=== PATIENT | male | born 1965 | race Caucasian/White ===

== ENCOUNTER 2020-10-08 16:42 | Inpatient (IN) | payer OTHER ==
[~2020-10-08] VITALS: Ht 170.2 cm; Wt 100.7 kg
[2020-10-08] MEDS ORDERED: NICARDIPINE 40MG/200ML PREMIX 200 ML IV PRN (17:15)
[2020-10-08] MEDS ORDERED: IOHEXOL-350 100 ML BOTTLE ONE (17:43)
[2020-10-08] MEDS ORDERED: ALTEPLASE 100MG/VIAL IV NR (18:00)
[2020-10-08] MEDS ORDERED: *NO ASPIRIN X 24 HOURS XX SCH (18:00)
[2020-10-08] MEDS ORDERED: ALTEPLASE 81 MG in BAG 1 EACH IV ONE (18:05)
[2020-10-08 18:11] LABS: BASOPHILS % 0.8 % (0.0-2.0); EOSINOPHILS % 1.9 % (0.0-5.0); HEMATOCRIT. 38.6 % (42.0-52.0); HEMOGLOBIN. 13.4 g/dL (14.0-18.0); LYMPHOCYTES % 14.4 % (20.0-50.0); MEAN CORPUSCULAR HEMOGLOBIN 27.8 pg (28.0-32.0); MEAN CORPUSCULAR VOLUME 80.1 fL (80.0-94.0); MEAN PLATELET VOLUME 8.4 fl (7.4-10.4); MONOCYTES % 7.4 % (2.0-8.0); NEUTROPHILS % 75.5 % (40.0-76.0); PLATELET 337 x1000/uL (130-400); RED BLOOD CELL COUNT 4.81 mill/uL (4.7-6.1); RED CELL DISTRIBUTION WIDTH 13.7 % (11.6-14.6)
[2020-10-08 18:22] LABS: PROTHROMBIN TIME 10.4 sec (9.6-11.0)
[2020-10-08 18:23] LABS: ETHANOL BLOOD < 10 mg/dL
[2020-10-08 18:25] LABS: CHLORIDE 102 mEq/L (98-107)
[2020-10-08 18:26] LABS: LDL CHOLESTEROL 100 mg/dL (5-100)
[2020-10-08 20:49] LABS: CLARITY URINE CLEAR (CLEAR); COLOR URINE YELLOW (YELLOW); KETONES URINE NEGATIVE (NEGATIVE); LEUKOCYTE ESTERASE URINE NEGATIVE (NEGATIVE); NITRITE URINE NEGATIVE (NEGATIVE); OCCULT BLOOD URINE NEGATIVE (NEGATIVE); PH URINE 6.5 (4.5-8.0); PROTEIN URINE NEGATIVE (NEGATIVE); SPECIFIC GRAVITY URINE 1.065 (1.005-1.030); UROBILINOGEN URINE 0.2 E.U./dL (0.2-1.0)
[2020-10-08 21:13] LABS: *AMPHETAMINES SCREEN URINE NEGATIVE (NEGATIVE); *BARBITURATES SCREEN URINE NEGATIVE (NEGATIVE); *BENZODIAZEPINES SCREEN URINE NEGATIVE (NEGATIVE); *COCAINE SCREEN URINE NEGATIVE (NEGATIVE)
[2020-10-08 21:14] LABS: CANNABINOID URINE SCREEN NEGATIVE (NEGATIVE); METHADONE URINE SCREEN NEGATIVE (NEGATIVE); OPIATES URINE SCREEN NEGATIVE (NEGATIVE); PHENCYCLIDINE URINE SCREEN NEGATIVE (NEGATIVE)
[2020-10-08] MEDS ORDERED: ONDANSETRON HCL 4MG/2ML INJ IV PRN (21:15)
[2020-10-08] MEDS ORDERED: LABETALOL 5MG/ML SYR 20 MG/4 ML SYRINGE IV PRN (21:15)
[2020-10-08 21:30] VITALS: BP 143/97
[2020-10-08 21:45] VITALS: BP 123/81
[2020-10-08 21:58] LABS: T4 FREE 1.02 ng/dL (0.76-1.46)
[2020-10-08 22:00] VITALS: BP 115/76
[2020-10-08] MEDS ORDERED: DEXTROSE 50% WATER 50ML SYRINGE IV PRN (22:00)
[2020-10-08] MEDS: DEXT 5%/0.45% NACL 1000ML 1,000 ML IV SCH (22:12)
[2020-10-08 23:17] LABS: CREATINE KINASE 62 IU/L (39-308)
[2020-10-08 23:18] LABS: CREATINE KINASE MB FRACTION 1.5 ng/mL (0.5-3.6)
[2020-10-08 23:45] VITALS: BP 151/74
[2020-10-09] VITALS (37 sets, daily range): BP systolic 106–154; BP diastolic 47–88
[2020-10-09 05:01] LABS: CHLORIDE 102 mEq/L (98-107)
[2020-10-09 05:02] LABS: BASOPHILS % 0.6 % (0.0-2.0); EOSINOPHILS % 1.9 % (0.0-5.0); HEMATOCRIT. 38.1 % (42.0-52.0); HEMOGLOBIN. 12.9 g/dL (14.0-18.0); LYMPHOCYTES % 20.8 % (20.0-50.0); MEAN CORPUSCULAR HEMOGLOBIN 27.5 pg (28.0-32.0); MEAN CORPUSCULAR VOLUME 81.2 fL (80.0-94.0); MEAN PLATELET VOLUME 8.3 fl (7.4-10.4); MONOCYTES % 7.7 % (2.0-8.0); PLATELET 326 x1000/uL (130-400); RED CELL DISTRIBUTION WIDTH 13.9 % (11.6-14.6)
[2020-10-09 05:11] LABS: CREATINE KINASE 86 IU/L (39-308)
[2020-10-09 05:12] LABS: CREATINE KINASE MB FRACTION 1.4 ng/mL (0.5-3.6)
[2020-10-09] MEDS: INSULIN LISPRO 100 UNITS/ML SUBCUT SCH ×3 (05:48→16:40)
[2020-10-09] MEDS: BLOOD SUGAR DIAGNOSTIC STRIP TEST SCH ×3 (06:35→16:33)
[2020-10-09] MEDS: DEXT 5%/0.45% NACL 1000ML 1,000 ML IV SCH (11:01)
[2020-10-09] MEDS ORDERED: ENOXAPARIN 30MG/0.3ML SYR SUBCUT SCH (18:00)
[2020-10-09] MEDS ORDERED: ATORVASTATIN CALCIUM 40MG TABLET PO SCH (21:00)
[2020-10-10] MEDS ORDERED: CLOPIDOGREL 75MG TABLET PO SCH (09:00)
[2020-10-10] MEDS ORDERED: ASPIRIN 81MG TABLET PO SCH (09:00)
== END 2020-10-09 20:05 | disposition short-term general hospital (02) | DRG 63 ==
LOC: ER 16:42 → MICUNO 20:03 → ENRESERV 20:06 → EDBEDREQTM 20:08 → EDBEDREQ 20:08 → EDBEDREQSVC 20:08 → MICUNO 22:59
PROVIDERS: ADMIT Internal Medicine; ATTEND Internal Medicine
DX: I63.9 Cerebral infarction, unspecified (principal); E78.00 Pure hypercholesterolemia, unspecified; I10 Essential (primary) hypertension; E78.5 Hyperlipidemia, unspecified; R29.810 Facial weakness; K42.9 Umbilical hernia without obstruction or gangrene; E66.01 Morbid (severe) obesity due to excess calories; Z68.34 Body mass index [BMI] 34.0-34.9, adult; Z86.73 Personal history of transient ischemic attack (TIA), and cerebral infarction without residual deficits; G83.11 Monoplegia of lower limb affecting right dominant side; E11.65 Type 2 diabetes mellitus with hyperglycemia
CPT/HCPCS: 36415; 70496; 70498; 70551; 71045; 80048; 80053; 80061; 80305; 80320; 81003; 82550; 82553; 82962; 83036; 83721; 84439; 84443; 84480; 84484; 85025; 93005; 93306; 93970; 99291; J1650; J1815; J2997; J7040; Q9967; G0480